=== PATIENT | male | born 1965 | race Caucasian/White ===

== ENCOUNTER 2017-03-27 10:29 | Observation (INO) | payer OTHER ==
[~2017-03-27] VITALS: Ht 170.2 cm; Wt 67.3 kg
[2017-03-27 11:16] LABS: HEMOGLOBIN 9.7 gm/dl (14.0-17.5); RED BLOOD COUNT 3.55 M/UL (4.20-5.50); WHITE BLOOD COUNT 3.2 K/UL (4.5-11.0)
[2017-03-27 11:54] LABS: BUN/CREATININE RATIO 14 (0-10)
[2017-03-28 05:16] LABS: HEMOGLOBIN 9.6 gm/dl (14.0-17.5); RED BLOOD COUNT 3.49 M/UL (4.20-5.50); WHITE BLOOD COUNT 3.5 K/UL (4.5-11.0)
[2017-03-28 05:29] LABS: BUN/CREATININE RATIO 8 (0-10)
[2017-03-28] MEDS ORDERED: FOLIC ACID 1 MG1 MG PO (07:12)
[2017-03-28] MEDS ORDERED: RANITIDINE HCL300 MG PO (07:13)
[2017-03-28] MEDS ORDERED: MELATONIN10 M3 PO (07:13)
[2017-03-28] MEDS ORDERED: PANTOPRAZOLE SO40 MG PO (07:14)
[2017-03-28] MEDS ORDERED: NITROSTAT 0.40.4 MG SL (07:14)
[2017-03-28] MEDS ORDERED: TRAZODONE HCL50 MG PO (07:15)
[2017-03-29 04:29] LABS: BUN/CREATININE RATIO 7 (0-10)
== END 2017-03-29 15:15 | disposition other institution (70) ==
LOC: ER1 10:29 → M/S 12:35 → ZEROF 12:35 → M/S 19:56
PROVIDERS: Family Medicine; ADMIT Internal Medicine
DX: E86.0 Dehydration (principal); E87.6 Hypokalemia; E83.42 Hypomagnesemia; K74.60 Unspecified cirrhosis of liver; D61.818 Other pancytopenia; I45.81 Long QT syndrome; F17.210 Nicotine dependence, cigarettes, uncomplicated; Z86.59 Personal history of other mental and behavioral disorders
CPT/HCPCS: 36415; 71010; 80048; 80053; 80307; 81001; 82550; 82553; 83735; 83874; 84132; 84484; 85025; 93005; 96360; 96361; 96365; 96366; 96375; 99285; G0378; J2550; J3480; J7030; J7120